=== PATIENT | female | born 1960 ===

== ENCOUNTER → 2018-05-14 | Outpatient (CLI) | payer MEDICARE, MEDICAID ==
[~2018-05-14] VITALS: Ht 165.1 cm; Wt 52.6 kg
[~2018-05-14] MED LIST: ACETAMINOPHEN 500 MG TABLET PO ONE; BACITRACIN 50,000 UNIT ONE; BUPIVACAINE/PF 0.25% ONE; BUPIVACAINE/PF-EPI 0.5% 1:200K ONE; DIAZEPAM 5 MG TABLET PO ONE; DICL50TA2 PO; DULO30CA2 PO; EPINEPHRINE 1 MG/ML, 1ML ONE; GABA300C10 PO; GABAPENTIN 300 MG CAPSULE PO ONE; HYDR-3307 PO; LACTATED RINGERS 1,000 ML IV SCH; LOSARTAN PO; ONDANSETRON 2MG/ML, 2ML IVPush ONE; OXYC-307 PO; OxyconTIN ER 20 MG TAB.ER PO ONE; PLEASE ENTER ALLERGIES MC SCH; PLEASE ENTER HEIGHT AND WEIGHT MC SCH; POLY17PO29 PO; SCOPOLAMINE PATCH, 1.5MG PATCH.TD72 TD ONE; THROMBIN 5,000 UNIT VIAL TP ONE; TIZA4TAB PO; VANCOMYCIN 1,000 MG ONE
[2018-05-14 12:33] VITALS: BP 112/73
== END | disposition home or self-care (01) ==
LOC: ORIP 11:15 → CLISVCS 11:15 → UNDOADMIN 11:15 → EDSTATUS 14:00 → UNDODISIN 15:00
PROVIDERS: ATTEND Neurological Surgery
DX: Z02.9 Encounter for administrative examinations, unspecified (principal)
CPT/HCPCS: J0171; J3370; J3490

== ENCOUNTER 2018-05-21 08:33 | Inpatient (IN) | payer MEDICARE, MEDICAID ==
[~2018-05-21] VITALS: Ht 162.6 cm; Wt 52.4 kg
[~2018-05-21 08:33] MED LIST changes: -ACETAMINOPHEN 500 MG TABLET PO ONE; -DIAZEPAM 5 MG TABLET PO ONE; -GABAPENTIN 300 MG CAPSULE PO ONE; -LACTATED RINGERS 1,000 ML IV SCH; -ONDANSETRON 2MG/ML, 2ML IVPush ONE; -OXYC-307 PO; -OxyconTIN ER 20 MG TAB.ER PO ONE; -PLEASE ENTER ALLERGIES MC SCH; -PLEASE ENTER HEIGHT AND WEIGHT MC SCH; -SCOPOLAMINE PATCH, 1.5MG PATCH.TD72 TD ONE
[2018-05-21 09:23] VITALS: BP 123/81
[2018-05-21] MEDS ORDERED: LACTATED RINGERS 1,000 ML IV SCH (09:32)
[2018-05-21] MEDS ORDERED: HEPARIN 1,000 UNITS/ML, 30ML ONE (11:53)
[2018-05-21] MEDS ORDERED: PROPOFOL 10 MG/ML, 20ML ONE ×4 (11:55→15:00)
[2018-05-21] MEDS ORDERED: ROCURONIUM 10MG/ML,5ML ONE (11:55)
[2018-05-21] MEDS ORDERED: CEFAZOLIN 1,000 MG ONE (12:01)
[2018-05-21] MEDS ORDERED: EPHEDRINE 50 MG/ML, 1ML ONE (12:01)
[2018-05-21] MEDS ORDERED: PHENYLEPHRINE 10 MG/ML ONE (12:01)
[2018-05-21] MEDS ORDERED: FENTANYL PF 100 MCG/2ML ONE ×4 (12:05→16:20)
[2018-05-21] MEDS ORDERED: LIDOCAINE 2% 100MG/5ML SYRINGE ONE (12:16)
[2018-05-21] MEDS ORDERED: PROPOFOL 50 ML ONE ×3 (12:22→13:35)
[2018-05-21] MEDS ORDERED: MORPHINE SULFATE 4 MG/ML, 1ML IVPush PRN (13:00)
[2018-05-21] MEDS ORDERED: MEPERIDINE/PF 25MG/0.5ML IVPush PRN (13:00)
[2018-05-21] MEDS ORDERED: OXYcodone 5 MG/5 ML ORAL.SOL UDC PO PRN (13:00)
[2018-05-21] MEDS ORDERED: HYDROcodone/APAP 7.5-325MG/15ML UDC PO PRN (13:00)
[2018-05-21] MEDS ORDERED: SUGAMMADEX 200 MG/2 ML IVPush ONE (13:11)
[2018-05-21] MEDS ORDERED: HYDROcodone/APAP 7.5-325MG/15ML UDC ONE ×2 (15:11)
[2018-05-21] MEDS ORDERED: HYDROmorphone 2 MG/ML, 1ML ONE (15:12)
[2018-05-21] MEDS ORDERED: MORPHINE SULFATE 4 MG/ML, 1ML ONE (15:16)
[2018-05-21] MEDS ORDERED: morphine SULFATE 10 MG/ML, 1ML IVPush PRN (15:30)
[2018-05-21] MEDS ORDERED: MEPERIDINE/PF 100 MG/ML IM PRN (15:30)
[2018-05-21] MEDS ORDERED: LABETALOL 5MG/ML, 20ML IVPush PRN (15:30)
[2018-05-21] MEDS ORDERED: DIPHENHYDRAMINE 25 MG CAPSULE PO PRN (15:30)
[2018-05-21] MEDS ORDERED: HYDROmorphone PCA 30 MG/30 ML IV PRN (15:30)
[2018-05-21] MEDS ORDERED: MAGNESIUM HYDROXIDE 8%, 30ML UDC PO PRN (15:30)
[2018-05-21] MEDS ORDERED: BISACODYL 10 MG SUPP PR PRN (15:30)
[2018-05-21] MEDS: LABETALOL 5MG/ML 40ML VIAL IVPush SCH ×2 (15:30→23:30)
[2018-05-21] MEDS ORDERED: HYDROcodone/APAP 10/325 MG TABLET PO PRN (15:30)
[2018-05-21] MEDS ORDERED: PROMETHAZINE 25 MG/ML, 1ML IM PRN (15:30)
[2018-05-21] MEDS ORDERED: PHARMACY MAY ADJ FOR RENAL FX MC PRN (15:30)
[2018-05-21] MEDS: HYDROmorphone 2 MG/ML, 1ML IVPush PRN ×4 (15:36→16:27)
[2018-05-21] MEDS: TIZANIDINE 4MG TABLET PO SCH ×2 (16:00→21:59)
[2018-05-21] MEDS: GABAPENTIN 300 MG CAPSULE PO SCH ×2 (16:00→21:59)
[2018-05-21] MEDS ORDERED: DIAZEPAM 5 MG TABLET ONE (16:08)
[2018-05-21] MEDS: DIAZEPAM 5 MG TABLET PO PRN (16:11)
[2018-05-21] MEDS ORDERED: hydrALAzine 20 MG/ML, 1ML ONE (16:20)
[2018-05-21] MEDS: FENTANYL PF 100 MCG/2ML IV PRN ×2 (16:22→16:35)
[2018-05-21] MEDS ORDERED: hydrALAzine 20 MG/ML, 1ML IV PRN (16:30)
[2018-05-21 16:35] LABS: MEAN CORPUSCULAR HEMOGLOBIN 30.4 pg (27.0-34.8); MEAN CORPUSCULAR VOLUME 92.1 fL (80-100); MEAN PLATELET VOLUME 7.7 fL (7.4-10.4); PLATELET COUNT 213 x10^3/uL (130-400); RED BLOOD COUNT 3.58 x10^6/uL (3.82-5.3); RED CELL DISTRIBUTION WIDTH 13.1 % (9.6-15.2)
[2018-05-21 16:39] LABS: ANISOCYTOSIS 1+; BASOPHILS # (AUTO) 0.02 x10^3/uL (0-0.1); BASOPHILS % (AUTO) 0 % (0-1); EOSINOPHILS # (AUTO) 0.01 x10^3/uL (0-0.4); EOSINOPHILS % (AUTO) 0 % (1-7); HYPOCHROMIA 1+; LYMPHOCYTES # (AUTO) 1.32 x10^3/uL (1-3.4); LYMPHOCYTES % (AUTO) 26 % (22-44); MD MORPH REVIEW ONLY; MICROCYTOSIS 1+; MONOCYTES # (AUTO) 0.12 x10^3/uL (0.2-0.8); MONOCYTES % (AUTO) 2 % (2-9); NEUTROPHILS # (AUTO) 3.63 x10^3/uL (1.8-6.8); NEUTROPHILS % (AUTO) 71 % (42-75); OVALOCYTES 1+
[2018-05-21 16:40] LABS: <PLATELET ESTIMATE> ADEQUATE; <PLT MORPHOLOGY> NORMAL PLT MORPH; SMUDGE CELLS 1+
[2018-05-21] MEDS ORDERED: CEFAZOLIN PMX 1GM/50ML 50 ML IVPB SCH (17:30)
[2018-05-21] MEDS ORDERED: ONDANSETRON ODT 4 MG PO PRN (18:00)
[2018-05-21] MEDS: NS + 20MEQ KCL 1,000 ML IV SCH (18:20)
[2018-05-21 19:52] VITALS: BP 123/70
[2018-05-21] MEDS: SODIUM CHLORIDE FLUSH 10ML SYR IVF SCH (21:00)
[2018-05-21] MEDS: CEFAZOLIN PMX 1GM/50ML 50 ML IVPB SCH (23:29)
[2018-05-21 23:33] VITALS: BP 100/60
[2018-05-22 03:36] VITALS: BP 110/64
[2018-05-22] MEDS: NS + 20MEQ KCL 1,000 ML IV SCH ×3 (03:52→23:31)
[2018-05-22] MEDS: DIAZEPAM 5 MG TABLET PO PRN (04:03)
[2018-05-22 04:57] LABS: BASOPHILS # (AUTO) 0.01 x10^3/uL (0-0.1); BASOPHILS % (AUTO) 0 % (0-1); EOSINOPHILS # (AUTO) 0.03 x10^3/uL (0-0.4); EOSINOPHILS % (AUTO) 1 % (1-7); LYMPHOCYTES # (AUTO) 1.68 x10^3/uL (1-3.4); LYMPHOCYTES % (AUTO) 27 % (22-44); MD NO; MEAN CORPUSCULAR HEMOGLOBIN 31.4 pg (27.0-34.8); MEAN CORPUSCULAR HGB CONC 34.4 g/dL (32.4-35.8); MEAN CORPUSCULAR VOLUME 91.1 fL (80-100); MEAN PLATELET VOLUME 7.2 fL (7.4-10.4); MONOCYTES # (AUTO) 0.43 x10^3/uL (0.2-0.8); MONOCYTES % (AUTO) 7 % (2-9); NEUTROPHILS # (AUTO) 3.98 x10^3/uL (1.8-6.8); NEUTROPHILS % (AUTO) 65 % (42-75); PLATELET COUNT 219 x10^3/uL (130-400); RED BLOOD COUNT 3.31 x10^6/uL (3.82-5.3); RED CELL DISTRIBUTION WIDTH 13.1 % (9.6-15.2)
[2018-05-22 05:11] LABS: ANION GAP 7 mmol/L (5-15); CALCIUM 7.9 mg/dL (8.5-10.1); CHLORIDE 108 mmol/L (98-107)
[2018-05-22 05:14] LABS: CREATININE 0.44 mg/dL (0.55-1.02)
[2018-05-22] MEDS: CEFAZOLIN PMX 1GM/50ML 50 ML IVPB SCH (06:44)
[2018-05-22 06:50] VITALS: BP 123/76
[2018-05-22] MEDS: TIZANIDINE 4MG TABLET PO SCH ×3 (08:36→20:31)
[2018-05-22] MEDS: GABAPENTIN 300 MG CAPSULE PO SCH ×3 (08:36→20:31)
[2018-05-22] MEDS: SENNA/DOCUSATE TABLET PO SCH (08:37)
[2018-05-22] MEDS: DULOXETINE 30 MG CAPSULE.DR PO SCH (08:37)
[2018-05-22] MEDS: LOSARTAN 50MG TABLET PO SCH (08:37)
[2018-05-22] MEDS: POLYETHYLENE GLYCOL 17 GM PACKET PO SCH (08:37)
[2018-05-22] MEDS: LABETALOL 5MG/ML 40ML VIAL IVPush SCH ×3 (08:44→23:30)
[2018-05-22] MEDS: SODIUM CHLORIDE FLUSH 10ML SYR IVF SCH ×2 (09:00→20:31)
[2018-05-22] MEDS ORDERED: DULOXETINE 30 MG CAPSULE.DR PO SCH (09:00)
[2018-05-22] MEDS: ONDANSETRON 2MG/ML, 2ML IVPush PRN ×2 (11:09→18:26)
[2018-05-22] MEDS: OXYcodone/APAP 10/325MG TABLET PO PRN ×3 (12:16→20:31)
[2018-05-22 14:07] VITALS: BP 144/81
[2018-05-22 19:56] VITALS: BP 139/86
[2018-05-23] MEDS: OXYcodone/APAP 10/325MG TABLET PO PRN ×5 (00:34→20:27)
[2018-05-23 00:46] VITALS: BP 125/72
[2018-05-23] MEDS: DIAZEPAM 5 MG TABLET PO PRN ×3 (04:17→18:53)
[2018-05-23 05:48] LABS: BASOPHILS # (AUTO) 0.01 x10^3/uL (0-0.1); BASOPHILS % (AUTO) 0 % (0-1); EOSINOPHILS # (AUTO) 0.04 x10^3/uL (0-0.4); EOSINOPHILS % (AUTO) 1 % (1-7); LYMPHOCYTES # (AUTO) 1.26 x10^3/uL (1-3.4); LYMPHOCYTES % (AUTO) 20 % (22-44); MD NO; MEAN CORPUSCULAR HEMOGLOBIN 30.7 pg (27.0-34.8); MEAN CORPUSCULAR HGB CONC 33.6 g/dL (32.4-35.8); MEAN CORPUSCULAR VOLUME 91.6 fL (80-100); MEAN PLATELET VOLUME 7.4 fL (7.4-10.4); MONOCYTES # (AUTO) 0.55 x10^3/uL (0.2-0.8); MONOCYTES % (AUTO) 9 % (2-9); NEUTROPHILS # (AUTO) 4.56 x10^3/uL (1.8-6.8); NEUTROPHILS % (AUTO) 71 % (42-75); PLATELET COUNT 218 x10^3/uL (130-400); RED BLOOD COUNT 3.33 x10^6/uL (3.82-5.3); RED CELL DISTRIBUTION WIDTH 13.3 % (9.6-15.2)
[2018-05-23 05:58] LABS: ANION GAP 5 mmol/L (5-15); CALCIUM 7.9 mg/dL (8.5-10.1); CHLORIDE 104 mmol/L (98-107); CREATININE 0.53 mg/dL (0.55-1.02)
[2018-05-23 07:23] VITALS: BP 146/89
[2018-05-23] MEDS: LABETALOL 5MG/ML 40ML VIAL IVPush SCH ×3 (07:30→23:30)
[2018-05-23] MEDS: GABAPENTIN 300 MG CAPSULE PO SCH ×3 (08:13→20:26)
[2018-05-23] MEDS: DULOXETINE 30 MG CAPSULE.DR PO SCH (08:13)
[2018-05-23] MEDS: SODIUM CHLORIDE FLUSH 10ML SYR IVF SCH ×2 (08:13→23:44)
[2018-05-23] MEDS: LOSARTAN 50MG TABLET PO SCH (08:13)
[2018-05-23] MEDS: SENNA/DOCUSATE TABLET PO SCH (08:13)
[2018-05-23] MEDS: POLYETHYLENE GLYCOL 17 GM PACKET PO SCH (08:14)
[2018-05-23] MEDS: TIZANIDINE 4MG TABLET PO SCH ×3 (08:28→20:27)
[2018-05-23] MEDS: NS + 20MEQ KCL 1,000 ML IV SCH ×2 (09:31→19:31)
[2018-05-23 13:05] VITALS: BP 112/72
[2018-05-23 19:45] VITALS: BP 106/64
[2018-05-24] MEDS: OXYcodone/APAP 10/325MG TABLET PO PRN ×4 (00:30→13:37)
[2018-05-24 01:41] VITALS: BP 110/68
[2018-05-24 04:54] LABS: BASOPHILS # (AUTO) 0.01 x10^3/uL (0-0.1); BASOPHILS % (AUTO) 0 % (0-1); EOSINOPHILS # (AUTO) 0.06 x10^3/uL (0-0.4); EOSINOPHILS % (AUTO) 1 % (1-7); LYMPHOCYTES # (AUTO) 1.41 x10^3/uL (1-3.4); LYMPHOCYTES % (AUTO) 22 % (22-44); MD NO; MEAN CORPUSCULAR HEMOGLOBIN 31.9 pg (27.0-34.8); MEAN CORPUSCULAR HGB CONC 34.3 g/dL (32.4-35.8); MEAN PLATELET VOLUME 7.3 fL (7.4-10.4); MONOCYTES # (AUTO) 0.58 x10^3/uL (0.2-0.8); MONOCYTES % (AUTO) 9 % (2-9); NEUTROPHILS # (AUTO) 4.43 x10^3/uL (1.8-6.8); NEUTROPHILS % (AUTO) 68 % (42-75); PLATELET COUNT 242 x10^3/uL (130-400); RED BLOOD COUNT 3.24 x10^6/uL (3.82-5.3); RED CELL DISTRIBUTION WIDTH 12.9 % (9.6-15.2)
[2018-05-24 04:58] LABS: ANION GAP 6 mmol/L (5-15); CALCIUM 8.3 mg/dL (8.5-10.1); CHLORIDE 102 mmol/L (98-107); CREATININE 0.56 mg/dL (0.55-1.02)
[2018-05-24] MEDS: NS + 20MEQ KCL 1,000 ML IV SCH (05:31)
[2018-05-24 08:12] VITALS: BP 142/85
[2018-05-24] MEDS: TIZANIDINE 4MG TABLET PO SCH (09:16)
[2018-05-24] MEDS: GABAPENTIN 300 MG CAPSULE PO SCH (09:17)
[2018-05-24] MEDS: SENNA/DOCUSATE TABLET PO SCH (09:17)
[2018-05-24] MEDS: POLYETHYLENE GLYCOL 17 GM PACKET PO SCH (09:17)
[2018-05-24] MEDS: LOSARTAN 50MG TABLET PO SCH (09:17)
[2018-05-24] MEDS: DULOXETINE 30 MG CAPSULE.DR PO SCH (09:17)
[2018-05-24] MEDS: LABETALOL 5MG/ML 40ML VIAL IVPush SCH (09:17)
[2018-05-24] MEDS: SODIUM CHLORIDE FLUSH 10ML SYR IVF SCH (09:18)
[2018-05-24] MEDS ORDERED: OXYC-307 PO (09:39)
[2018-05-24 13:07] VITALS: BP 94/60
== END 2018-05-24 14:07 | disposition home or self-care (01) | DRG 454 ==
LOC: ORIP 08:33 → 4NOR 17:23
PROVIDERS: ADMIT Neurological Surgery; ATTEND Neurological Surgery
PROC: 0SG1071 Fusion of 2 or more Lumbar Vertebral Joints with Autologous Tissue Substitute, Posterior Approach, Posterior Column, Open Approach (ICD-10-PCS; 2018-05-21)
PROC: 4A11X4G Monitoring of Peripheral Nervous Electrical Activity, Intraoperative, External Approach (ICD-10-PCS; 2018-05-21)
PROC: 30233N1 Transfusion of Nonautologous Red Blood Cells into Peripheral Vein, Percutaneous Approach (ICD-10-PCS; 2018-05-21)
PROC: 0SG10AJ Fusion of 2 or more Lumbar Vertebral Joints with Interbody Fusion Device, Posterior Approach, Anterior Column, Open Approach (ICD-10-PCS; principal; 2018-05-21 11:30)
DX: M48.061 Spinal stenosis, lumbar region without neurogenic claudication (principal); E44.1 Mild protein-calorie malnutrition; M51.16 Intervertebral disc disorders with radiculopathy, lumbar region; M19.90 Unspecified osteoarthritis, unspecified site; M41.80 Other forms of scoliosis, site unspecified; Z88.8 Allergy status to other drugs, medicaments and biological substances; Z87.891 Personal history of nicotine dependence
CPT/HCPCS: 36415; 72100; 80048; 85025; 86850; 86900; 86920; 86923; 93005; 95938; 95941; C1713; C1776; G0378; J0171; J0690; J1170; J1644; J2405; J2704; J3010; J3370; J3480; J3490; Q0162; C1762; J0360; J2270; J2370; J7120; P9016